=== PATIENT | female | born 1940 | race Caucasian/White ===

== ENCOUNTER 2016-11-28 13:56 | Emergency (ER) | payer OTHER ==
[2016-11-28 14:38] VITALS: BP 148/79; PULSE 74; RESP 16; TEMP 97.5; O2SAT 95
--- NOTE | 2016-11-28 15:30 | UCPHY ---
H & P Time Seen by Provider: 11/28/16 15:21 Patient Type: New HPI/ROS: CHIEF COMPLAINT: "Sinus pressure" HPI: The patient is a 76-year-old female who denies any significant past medical history, specifically no diabetes. She complains of several days of runny nose and sinus pain and pressure to both maxillary sinuses, primarily the right. She complains of discomfort in her ear and a pressure-like sensation especially when changing out to. She denies fever. She has no history of sinus or face surgery. She denies numbness, weakness or tingling. REVIEW OF SYSTEMS: Aside from elements discussed in the HPI, a comprehensive 10-point review of systems was reviewed and is negative. PMH: Denies diabetes or history of facial surgery. SOCIAL HISTORY: Retired. Lives in [place], staying in [facility]. FAMILY HISTORY: Reviewed, noncontributory PHYSICAL EXAM: General:Patient is alert, in no acute distress. ENT:Eyes are normal to inspection. ENT inspection normal. EOMI. Tenderness to palpation is present over both maxillary sinuses. No deformity or asymmetry noted. Bilateral tympanic membranes are normal and not bulging. Neck: Normal inspection. Full range of motion. Respiratory:No respiratory distress. Neuro: Oriented x3. Normal motor function. Normal sensory function. Cranial nerves intact. Smoking Status: Never smoked Constitutional: Initial Vital Signs Temperature (C) 36.4 C 11/28/16 14:30 Heart Rate 74 11/28/16 14:30 Respiratory Rate 16 11/28/16 14:30 Blood Pressure 148/79 H 11/28/16 14:30 O2 Sat (%) 95 11/28/16 14:30 O2 Delivery Mode Room Air Allergies/Adverse Reactions: codeine Allergy (Verified 11/28/16 14:38) Home Medications: Medication Instructions Recorded Amoxicillin/Clavulanate Pot 875 mg PO BID #14 tab 11/28/16 [Augmentin 875Mg] Fluticasone Nasal [Flonase Nasal 2 sprays NASAL DAILY #1 mdi 11/28/16 [place]] Hydrochlorothiazide 11/28/16 MDM/Departure - MDM Differential Diagnosis: This patient presents with what appears to be simple bilateral sinusitis. I cautioned her extensively regarding the possibility of other more rare condition such as varicella and tumor. She is comfortable with the plan of symptomatic treatment at this point and promises to follow up with her primary physician for further testing should symptoms either fail to improve or worsen. At this point I see no evidence of shingles or tumor, certainly not of stroke. I will treat her with antibiotics and nasal steroids. She is comfortable with this plan. - Depart Clinical Impression: Acute sinusitis Qualifiers: Sinusitis location: maxillary Recurrence: non-recurrent Qualifier Code: (J01.00 ) Acute maxillary sinusitis, unspecified Instructions: Sinusitis (ED) Additional Instructions: Follow-up with your primary doctor within one week. This appears to represent simple sinusitis. However, if symptoms worsen or you develop fever or facial rash, return to the ER or Urgent Care immediately. Prescriptions: Amoxicillin/Clavulanate Pot [Augmentin 875Mg] 875 mg PO BID #14 tab Fluticasone Nasal [Flonase Nasal [place]] 2 sprays NASAL DAILY #1 mdi Referrals: OUT OF STATE,. [Primary Care Provider] - As per Instructions - PQRS PQRS Measurement: 134: Depression screening and followup, PRIME MD-PHQ2 (12 years and older) Over the last 2 weeks, how often have you been bothered by any of the following problems? 1. Feeling down, depressed, or hopeless? 2. Little interest or pleasure in doing things? Patient answered no to both 1 and 2 130: Documentation of medications. Reviewed all patient medications, doses, route and frequency. 226: Do you smoke? No. 51: 18 years old and older with diagnosis of COPD, spirometry performance. Spirometry not performed; equipment not available. Patient has no history of COPD 52: 18 years old and older with COPD and symptoms of COPD or FEV1<60% predicted prescribed a B Agonist. Spirometry not performed; equipment not available.
== END 2016-11-28 15:44 | disposition home or self-care (01) ==
LOC: CED 13:56
DX: J01.90 Acute sinusitis, unspecified (principal)
CPT/HCPCS: G0463-PO